=== PATIENT | male | born 1945 | race Two or more races ===

== ENCOUNTER 2017-09-16 20:23 | Emergency (ER) | payer OTHER, BC, MEDICARE ==
[~2017-09-16] VITALS: Ht 180.3 cm; Wt 85.5 kg
[~2017-09-16 20:23] MED LIST: ATEN-169 PO; ATOR40TA PO; CHOL400C8 PO; CYAN-19 PO; FISH1CAP15 PO; ISOS60TA4 PO; LEVO88TA2 PO; LISI30TA4 PO; TICA90TA PO
[2017-09-16 23:13] VITALS: BP 169/98
== END 2017-09-16 23:54 | disposition home or self-care (01) ==
LOC: ER 20:24
DX: R04.0 Epistaxis (principal); I25.10 Atherosclerotic heart disease of native coronary artery without angina pectoris; I10 Essential (primary) hypertension; I25.2 Old myocardial infarction; Z95.0 Presence of cardiac pacemaker; Z95.1 Presence of aortocoronary bypass graft; Z79.899 Other long term (current) drug therapy
CPT/HCPCS: 30901; 99284

== ENCOUNTER 2018-04-08 05:41 | Day surgery (SDC) | payer BC, MEDICARE, OTHER ==
[2018-04-07 16:17] LABS: BASOPHILS % (AUTO) 0.4 % (0-1); EOSINOPHILS # (AUTO) 0.3 X10'3 (0-0.9); EOSINOPHILS % (AUTO) 4.9 % (0-6); HEMATOCRIT 46.5 % (42.0-52.0); HEMOGLOBIN 15.7 g/dl (14.0-17.9); LYMPHOCYTES # (AUTO) 2.5 X10'3 (1.1-4.8); LYMPHOCYTES % (AUTO) 36.3 % (21-51); MEAN CORPUSCULAR HGB CONC 33.7 % (33.0-36.5); MEAN PLATELET VOLUME 10.4 FL (7.4-10.4); MONOCYTES # (AUTO) 0.4 X10'3 (0-0.9); MONOCYTES % (AUTO) 5.4 % (2-12); NEUTROPHILS # (AUTO) 3.6 X10'3 (1.8-7.7); PLATELET COUNT 112 X10'3 (140-440); RED CELL DISTRIBUTION WIDTH 14.9 % (11.5-14.5); WHITE BLOOD COUNT 6.9 X10'3 (4.5-11.0)
[2018-04-07 16:29] LABS: INR 1.1 INR; PARTIAL THROMBOPLASTIN TIME 31 SECONDS (22-32); PROTHROMBIN TIME 10.9 SECONDS (9.0-12.0)
[2018-04-07 16:31] LABS: ALBUMIN 3.8 G/DL (3.4-5.0); ANION GAP 10 (8-16); BLOOD UREA NITROGEN 12 MG/DL (7-18); BUN/CREATININE RATIO 11.2 (5.4-32.0); CALCIUM 8.5 MG/DL (8.5-10.1); CHLORIDE 104 MMOL/L (99-107); CHOL/HDL RATIO 3.2 (0.00-4.99); CHOLESTEROL 160 MG/DL (0-200); CREATININE 1.07 MG/DL (0.60-1.10); GLUCOSE 113 MG/DL (70-104); HDL CHOLESTEROL 50 MG/DL (35-60); LDL CHOLESTEROL 83 MG/DL (50-100); POTASSIUM 3.8 MMOL/L (3.5-5.1); SODIUM 142 MMOL/L (135-145); TOTAL CARBON DIOXIDE 27.8 MMOL/L (24-32); TRIGLYCERIDES 309 MG/DL (20-135); eGFR 68 ML/MIN
[2018-04-08] VITALS (30 sets, daily range): BP systolic 124–179; BP diastolic 62–99
[2018-04-08] MEDS ORDERED: LORazepam 0.5 MG tablet PO PRN (05:55)
[2018-04-08] MEDS ORDERED: diphenhydrAMINE 25mg capsule PO PRN (05:55)
[2018-04-08] MEDS ORDERED: normal saline 1000ml 1,000 ML IV SCH (05:55)
[2018-04-08] MEDS ORDERED: CLOP75TA15 PO (06:23)
[2018-04-08] MEDS ORDERED: ASPI-1264 PO (06:24)
[2018-04-08] MEDS ORDERED: fentaNYL/PF 50MCG/1 ML 2ML syringe ONE (07:25)
[2018-04-08] MEDS ORDERED: nitroGLYCERIN-Tridil 50MG/D5W 250 ML IV ONE (07:25)
[2018-04-08] MEDS ORDERED: midazolam 2 mg/2 ml injection ONE (07:25)
[2018-04-08] MEDS ORDERED: heparin 1,000unit/ml 10ml vial 10 ML ONE (07:25)
[2018-04-08] MEDS ORDERED: LIDOcaine 1% 30ml preserv. free vial ONE ×2 (07:25→13:16)
[2018-04-08] MEDS ORDERED: iohexol 350 MG/ML 50ML vial IV ONE (07:26)
[2018-04-08] MEDS ORDERED: iohexol 350MG/ML 100ml bottle IV ONE ×3 (07:26→09:55)
[2018-04-08] MEDS ORDERED: iohexol 350 MG/1 ML 200ml bottle ONE (09:30)
[2018-04-08] MEDS ORDERED: heparin 1,000 UNITS/NS 500ml 500 ML ONE (09:56)
[2018-04-08] MEDS ORDERED: clopidogrel 300mg tablet ONE (10:05)
[2018-04-08] MEDS ORDERED: proCHLORperazine 10 MG/2 ml inj IV PRN (11:10)
[2018-04-08] MEDS ORDERED: magnesium hydroxide 30ml (MOM) UD suspension PO PRN (11:10)
[2018-04-08] MEDS ORDERED: OXAZEpam 15mg capsule PO PRN (11:10)
[2018-04-08] MEDS ORDERED: acetaminophen 325mg tablet PO PRN (11:10)
[2018-04-08] MEDS ORDERED: HYDROcodone/acetaminophen 10/325mg tab PO PRN ×2 (11:10)
[2018-04-08] MEDS ORDERED: cyclobenzaprine 10mg tablet PO PRN (11:10)
[2018-04-08] MEDS ORDERED: aspirin 81mg tab.chew PO ONE (11:20)
[2018-04-08 15:50] LABS: ISTAT Hct MIX 41 %PCV (42-52); ISTAT O2 SATURATION MIX VENOUS 60 % (60-80); ISTAT SOURCE MIX
[2018-04-08] MEDS ORDERED: docusate sod 100mg capsule PO SCH (20:00)
[2018-04-09] MEDS ORDERED: iohexol 300mg/ml 100ml inj. ONE (01:37)
[2018-04-09] MEDS ORDERED: clopidogrel 75mg tablet PO SCH (08:00)
[2018-04-09] MEDS ORDERED: aspirin 81mg tab.chew PO SCH (08:00)
[2018-04-09 09:05] LABS: ISTAT HGB ART 14.3 g/dl (14.0-18.0); ISTAT Hct ART 42 %PCV (42-52); ISTAT O2 SATURATION ARTERIAL 99 % (95-98); ISTAT SOURCE ART
== END 2018-04-08 20:20 | disposition home or self-care (01) ==
LOC: SSTAY O 05:41
PROVIDERS: ATTEND Internal Medicine Cardiovascular Disease
DX: T82.855A Stenosis of coronary artery stent, initial encounter (principal); Y83.2 Surgical operation with anastomosis, bypass or graft as the cause of abnormal reaction of the patient, or of later complication, without mention of misadventure at the time of the procedure; Y92.89 Other specified places as the place of occurrence of the external cause; I25.708 Atherosclerosis of coronary artery bypass graft(s), unspecified, with other forms of angina pectoris; E78.5 Hyperlipidemia, unspecified; I10 Essential (primary) hypertension; I25.2 Old myocardial infarction; J44.9 Chronic obstructive pulmonary disease, unspecified; E03.9 Hypothyroidism, unspecified; Z95.5 Presence of coronary angioplasty implant and graft; Z95.1 Presence of aortocoronary bypass graft; Z95.810 Presence of automatic (implantable) cardiac defibrillator; Z79.891 Long term (current) use of opiate analgesic; Z79.01 Long term (current) use of anticoagulants; Z79.82 Long term (current) use of aspirin; Z86.74 Personal history of sudden cardiac arrest; Z87.891 Personal history of nicotine dependence; Z87.01 Personal history of pneumonia (recurrent); Z72.89 Other problems related to lifestyle; Z98.890 Other specified postprocedural states; Z79.899 Other long term (current) drug therapy; Z80.9 Family history of malignant neoplasm, unspecified; Z82.49 Family history of ischemic heart disease and other diseases of the circulatory system
CPT/HCPCS: 36415; 80048; 80061; 82803; 85014; 85025; 85347; 85610; 85730; 92920; 93005; 93461; 99152; 99153; A6257; A6258; A6449; C1725; C1760; C1769; C1894; C9600; J1644; J2250; J3490; J7030; Q0163; Q9967; 93460; A4620; J3010

== ENCOUNTER 2019-06-02 08:23 | Day surgery (SDC) | payer BC, MEDICARE ==
[2019-06-01 12:39] LABS: BASOPHILS % (AUTO) 0.4 % (0-1); EOSINOPHILS # (AUTO) 0.2 X10'3 (0-0.9); EOSINOPHILS % (AUTO) 2.9 % (0-6); HEMATOCRIT 44.4 % (42.0-52.0); HEMOGLOBIN 15.2 g/dl (14.0-17.9); LYMPHOCYTES # (AUTO) 1.9 X10'3 (1.1-4.8); LYMPHOCYTES % (AUTO) 32.1 % (21-51); MEAN CORPUSCULAR HEMOGLOBIN 29.1 PG (27.0-31.0); MEAN CORPUSCULAR HGB CONC 34.3 g/dL (33.0-36.5); MEAN CORPUSCULAR VOLUME 84.8 FL (78-98); MEAN PLATELET VOLUME 9.6 FL (7.4-10.4); MONOCYTES # (AUTO) 0.3 X10'3 (0-0.9); MONOCYTES % (AUTO) 5.9 % (2-12); NEUTROPHILS # (AUTO) 3.4 X10'3 (1.8-7.7); NEUTROPHILS % (AUTO) 58.7 % (42-75); PLATELET COUNT 103 X10'3 (140-440); RED BLOOD COUNT 5.24 X10'6 (4.70-6.10); RED CELL DISTRIBUTION WIDTH 14.3 % (11.5-14.5); WHITE BLOOD COUNT 5.8 X10'3 (4.5-11.0)
[2019-06-01 12:44] LABS: ALBUMIN 3.7 G/DL (3.4-5.0); ANION GAP 8 (8-16); BLOOD UREA NITROGEN 12 MG/DL (7-18); BUN/CREATININE RATIO 13.6 (5.4-32.0); CALCIUM 8.4 MG/DL (8.5-10.1); CHLORIDE 107 MMOL/L (99-107); CREATININE 0.88 MG/DL (0.60-1.10); GLUCOSE 98 MG/DL (70-104); POTASSIUM 3.7 MMOL/L (3.5-5.1); SODIUM 142 MMOL/L (135-145); TOTAL CARBON DIOXIDE 27.3 MMOL/L (24-32); eGFR 85 ML/MIN
[2019-06-01 12:47] LABS: PARTIAL THROMBOPLASTIN TIME 28 SECONDS (22-32)
[~2019-06-02] VITALS: Ht 180.3 cm; Wt 92.8 kg
[2019-06-02] VITALS (10 sets, daily range): BP systolic 125–146; BP diastolic 78–108
[~2019-06-02 08:23] MED LIST changes: +ASPI-1264 PO; +CLOP75TA15 PO; -CYAN-19 PO; +CYAN100019 PO; -TICA90TA PO
[2019-06-02] MEDS ORDERED: normal saline 1,000 ML IV SCH (08:55)
[2019-06-02] MEDS ORDERED: diphenhydrAMINE 25mg capsule PO PRN (08:55)
[2019-06-02] MEDS ORDERED: LORazepam 0.5 MG tablet PO PRN (08:55)
[2019-06-02] MEDS ORDERED: LIDOcaine 1% (10mg/ml)w/preservative injection 20ml MDV ONE (11:20)
[2019-06-02] MEDS ORDERED: iohexol 350MG/ML 100ml bottle IV ONE (11:20)
[2019-06-02] MEDS ORDERED: iohexol 350 MG/ML 50ML vial IV ONE (11:20)
[2019-06-02] MEDS ORDERED: nitroGLYCERIN-Tridil 50MG/D5W 250 ML IV ONE (11:20)
[2019-06-02] MEDS ORDERED: heparin 1,000unit/ml 10ml vial 10 ML ONE (11:20)
[2019-06-02] MEDS ORDERED: midazolam 2 mg/2 ml injection ONE (11:41)
[2019-06-02] MEDS ORDERED: fentaNYL/PF 50MCG/1 ML 2ML syringe ONE (11:41)
[2019-06-02] MEDS ORDERED: normal saline 1000ml 1,000 ML IV SCH (12:40)
== END 2019-06-02 18:00 | disposition home or self-care (01) ==
LOC: SSTAY O 08:23
PROVIDERS: ATTEND Internal Medicine Cardiovascular Disease
DX: I25.10 Atherosclerotic heart disease of native coronary artery without angina pectoris (principal); R94.39 Abnormal result of other cardiovascular function study; I10 Essential (primary) hypertension; Z95.1 Presence of aortocoronary bypass graft; Z86.74 Personal history of sudden cardiac arrest; I25.2 Old myocardial infarction; Z95.810 Presence of automatic (implantable) cardiac defibrillator; R06.02 Shortness of breath; R53.83 Other fatigue; J44.9 Chronic obstructive pulmonary disease, unspecified; Z87.891 Personal history of nicotine dependence
CPT/HCPCS: 36415; 80048; 85025; 85610; 85730; 93005; 93459; C1769; J1644; J2001; J2250; J3010; J7030; Q0163; Q9967; 99152; 99153; A4620; A6258; C1760; J3490

== ENCOUNTER 2022-03-13 14:03 | Emergency (ER) | payer OTHER, BC, MEDICARE ==
[~2022-03-13] VITALS: Ht 180.3 cm; Wt 71.0 kg
[~2022-03-13 14:03] MED LIST changes: -CHOL400C8 PO; -CYAN100019 PO; -ISOS60TA4 PO; +ISOS60TA71 PO
[2022-03-13 14:53] LABS: BASOPHILS % (AUTO) 0.3 % (0-1); EOSINOPHILS % (AUTO) 0.3 % (0-6); HEMATOCRIT 42.2 % (42.0-52.0); HEMOGLOBIN 14.3 g/dl (14.0-17.9); LYMPHOCYTES # (AUTO) 0.7 X10'3 (1.1-4.8); LYMPHOCYTES % (AUTO) 7.4 % (21-51); MEAN CORPUSCULAR HEMOGLOBIN 28.6 PG (27.0-31.0); MEAN CORPUSCULAR VOLUME 84.3 FL (78-98); MEAN PLATELET VOLUME 9.8 FL (7.4-10.4); MONOCYTES # (AUTO) 0.7 X10'3 (0-0.9); MONOCYTES % (AUTO) 7.6 % (2-12); NEUTROPHILS # (AUTO) 7.6 X10'3 (1.8-7.7); NEUTROPHILS % (AUTO) 84.4 % (42-75); PLATELET COUNT 98 X10'3 (140-440); RED CELL DISTRIBUTION WIDTH 14.4 % (11.5-14.5)
[2022-03-13 15:07] LABS: ALANINE AMINOTRANSFERASE 25 U/L (12-78); ALBUMIN 3.2 G/DL (3.4-5.0); ALBUMIN/GLOBULIN RATIO 0.8 (1.1-1.5); ALKALINE PHOSPHATASE 96 IU/L (46-116); ANION GAP 9 (8-16); ASPARTATE AMINO TRANSFERASE 22 U/L (10-37); BILIRUBIN,TOTAL 0.7 MG/DL (0.1-1.0); BLOOD UREA NITROGEN 20 MG/DL (7-18); BUN/CREATININE RATIO 23.5 (5.4-32.0); CALCIUM 8.8 MG/DL (8.5-10.1); CHLORIDE 105 MMOL/L (99-107); CREATININE 0.85 MG/DL (0.60-1.10); GLUCOSE 101 MG/DL (70-104); LIPASE 70 U/L (73-393); POTASSIUM 3.9 MMOL/L (3.5-5.1); SODIUM 140 MMOL/L (135-145); TOTAL CARBON DIOXIDE 26.4 MMOL/L (24-32); TOTAL PROTEIN 7.3 G/DL (6.4-8.2); eGFR 88 ML/MIN
[2022-03-13 18:14] LABS: CLARITY,URINE CLEAR (Clear); COLOR,URINE YELLOW (Yellow); GLUCOSE, URINE NEGATIVE (Neg); KETONES,URINE 15 mg/dl (Neg); LEUKOCYTE ESTERASE ,URINE MODERATE (Neg); NITRITES, URINE NEGATIVE (Neg); OCCULT BLOOD,URINE LARGE (Neg); PROTEIN,URINE 100 mg/dl (Neg)
[2022-03-13] MEDS ORDERED: normal saline 1000ML IV soln IVB ONE (18:35)
[2022-03-13] MEDS ORDERED: HYDROcodone/acetaminophen 5mg/325mg tablet PO ONE ×2 (18:40→20:10)
[2022-03-13 18:44] LABS: UA COLLECTION TYPE CLN CATCH MIDSTREAM
[2022-03-13 18:50] LABS: WBC,URINE TNTC /HPF (0-4)
[2022-03-13 18:51] LABS: BACTERIA,URINE 4+ /HPF (Neg); MUCUS STRANDS NONE SEEN /LPF (Neg); SQUAMOUS EPITHELIAL CELL,UR NONE SEEN /LPF (FEW)
[2022-03-13] MEDS ORDERED: iohexol 300mg/ml 100ml inj. ONE (19:04)
[2022-03-13] MEDS ORDERED: LIDOcaine 5% patch TP STA (20:06)
[2022-03-13] MEDS ORDERED: CEPH250T PO (20:09)
[2022-03-13] MEDS ORDERED: LIDO700A32 TOP (20:09)
[2022-03-13] MEDS ORDERED: HYDR-3965 PO (20:09)
[2022-03-13] MEDS ORDERED: cephalexin 250mg capsule PO ONE (20:10)
[2022-03-13 21:33] VITALS: BP 132/70
== END 2022-03-13 22:48 | disposition home or self-care (01) ==
LOC: ER 14:05
DX: S20.212A Contusion of left front wall of thorax, initial encounter (principal); N39.0 Urinary tract infection, site not specified; R07.81 Pleurodynia; R31.9 Hematuria, unspecified; R30.0 Dysuria; I25.10 Atherosclerotic heart disease of native coronary artery without angina pectoris; I10 Essential (primary) hypertension; I25.2 Old myocardial infarction; Z95.0 Presence of cardiac pacemaker; Z98.890 Other specified postprocedural states; Z79.82 Long term (current) use of aspirin; Z79.2 Long term (current) use of antibiotics; Z79.899 Other long term (current) drug therapy; W19.XXXA Unspecified fall, initial encounter; Y93.89 Activity, other specified; Y92.89 Other specified places as the place of occurrence of the external cause; Y99.8 Other external cause status
CPT/HCPCS: 74176; 74177; 80053; 81001; 83690; 85025; 87077; 87088; 87186; 99285; J3490; J7030; Q9967

== ENCOUNTER 2024-01-14 08:30 | Day surgery (SDC) | payer OTHER, MEDICARE ==
[2024-01-13 14:16] LABS: BASOPHILS % (AUTO) 0.4 % (0-1); EOSINOPHILS # (AUTO) 0.2 X10'3 (0-0.9); EOSINOPHILS % (AUTO) 2.7 % (0-6); HEMATOCRIT 46.7 % (42.0-52.0); HEMOGLOBIN 15.6 g/dl (14.0-17.9); LYMPHOCYTES # (AUTO) 1.9 X10'3 (1.1-4.8); LYMPHOCYTES % (AUTO) 22.9 % (21-51); MEAN CORPUSCULAR HEMOGLOBIN 27.8 PG (27.0-31.0); MEAN CORPUSCULAR HGB CONC 33.4 g/dL (33.0-36.5); MEAN CORPUSCULAR VOLUME 83.2 FL (78-98); MEAN PLATELET VOLUME 9.5 FL (7.4-10.4); MONOCYTES # (AUTO) 0.8 X10'3 (0-0.9); NEUTROPHILS # (AUTO) 5.4 X10'3 (1.8-7.7); PLATELET COUNT 144 X10'3 (140-440); RED BLOOD COUNT 5.61 X10'6 (4.70-6.10); RED CELL DISTRIBUTION WIDTH 15.7 % (11.5-14.5); WHITE BLOOD COUNT 8.5 X10'3 (4.5-11.0)
[2024-01-13 14:27] LABS: APTT 26 SECONDS (22-32); PROTHROMBIN TIME 11.2 SECONDS (9.0-12.0)
[2024-01-13 14:29] LABS: ALBUMIN 3.8 G/DL (3.4-5.0); ANION GAP 11 (8-16); BLOOD UREA NITROGEN 13 MG/DL (7-18); BUN/CREATININE RATIO 9.7 (10.0-20.0); CALCIUM 8.6 MG/DL (8.5-10.1); CHLORIDE 104 MMOL/L (99-107); CREATININE 1.34 MG/DL (0.60-1.10); GLUCOSE 86 MG/DL (70-104); POTASSIUM 3.5 MMOL/L (3.5-5.1); SODIUM 139 MMOL/L (135-145); TOTAL CARBON DIOXIDE 23.6 MMOL/L (24-32); eGFR 52 ML/MIN
[~2024-01-14] VITALS: Ht 180.3 cm; Wt 87.5 kg
[2024-01-14] VITALS (13 sets, daily range): BP systolic 107–159; BP diastolic 66–96; PULSE 60–65; RESP 11–16; TEMP 98.1; O2SAT 95–97
[~2024-01-14 08:30] MED LIST changes: +APIX5TAB3 PO; -ASPI-1264 PO; +FURO-150 PO
[2024-01-14] MEDS ORDERED: fish oil (09:00)
[2024-01-14] MEDS ORDERED: AMI200T PO (09:00)
[2024-01-14] MEDS ORDERED: FURO20TA4 PO (09:00)
[2024-01-14] MEDS ORDERED: MECO10005 PO (09:00)
[2024-01-14] MEDS ORDERED: ATEN100T PO (09:00)
[2024-01-14] MEDS ORDERED: CLOP-32 PO (09:01)
[2024-01-14] MEDS ORDERED: APIX5TAB3 PO (09:26)
[2024-01-14] MEDS: normal saline 1,000 ML IV SCH (09:46)
[2024-01-14] MEDS: diphenhydrAMINE 25mg capsule PO PRN (09:46)
[2024-01-14] MEDS: LORazepam 0.5 MG tablet PO PRN (09:46)
[2024-01-14] MEDS ORDERED: verapamil 2.5 mg/ml inj IV ONE (12:09)
[2024-01-14] MEDS ORDERED: fentaNYL/PF 50MCG/1 ML 2ML syringe ONE (12:09)
[2024-01-14] MEDS ORDERED: LIDOcaine 1% (10mg/ml) 2ml vial ONE (12:09)
[2024-01-14] MEDS ORDERED: iohexol 350MG/ML 100ml bottle IV ONE (12:10)
[2024-01-14] MEDS ORDERED: midazolam 1 mg/ML 2ml injection ONE (12:10)
[2024-01-14] MEDS ORDERED: iohexol 350 MG/ML 50ML vial IV ONE ×2 (12:10→12:54)
[2024-01-14] MEDS ORDERED: heparin 1,000unit/ml 10ml vial 10 ML ONE (12:10)
[2024-01-14] MEDS ORDERED: LIDOcaine 1% 30ml preserv. free vial ONE (12:11)
[2024-01-14] MEDS ORDERED: nitroGLYCERIN 500mcg/5mL D5W 5 ML IV ONE (12:12)
[2024-01-14] MEDS ORDERED: HYDROcodone/acetaminophen 10/325mg tab PO PRN (13:45)
[2024-01-14] MEDS ORDERED: normal saline 1000ml 1,000 ML IV SCH (13:45)
[2024-01-14] MEDS ORDERED: HYDROcodone/acetaminophen 5mg/325mg tablet PO PRN (13:45)
== END 2024-01-14 19:25 | disposition home or self-care (01) ==
LOC: SSTAY O 08:30
PROVIDERS: ATTEND Internal Medicine Cardiovascular Disease
DX: I25.810 Atherosclerosis of coronary artery bypass graft(s) without angina pectoris (principal); I11.0 Hypertensive heart disease with heart failure; I50.32 Chronic diastolic (congestive) heart failure; E78.5 Hyperlipidemia, unspecified; J44.9 Chronic obstructive pulmonary disease, unspecified; I48.0 Paroxysmal atrial fibrillation; I48.92 Unspecified atrial flutter; I25.2 Old myocardial infarction; Z79.01 Long term (current) use of anticoagulants; Z79.82 Long term (current) use of aspirin; Z79.899 Other long term (current) drug therapy; Z95.1 Presence of aortocoronary bypass graft; Z95.5 Presence of coronary angioplasty implant and graft; Z95.810 Presence of automatic (implantable) cardiac defibrillator; Z98.890 Other specified postprocedural states
CPT/HCPCS: 36415; 76937; 80048; 85025; 85610; 85730; 93005; 93459; 99152; J1644; J2250; J3010; J3490; J7030; Q0163; Q9967; 99153; A6258; C1725; C1760

== ENCOUNTER 2024-06-30 06:24 | Day surgery (SDC) | payer OTHER, MEDICARE ==
[2024-06-29 15:09] LABS: BASOPHILS % (AUTO) 0.7 % (0-1); EOSINOPHILS # (AUTO) 0.2 X10'3 (0-0.9); EOSINOPHILS % (AUTO) 2.5 % (0-6); HEMATOCRIT 42.6 % (42.0-52.0); HEMOGLOBIN 13.8 g/dl (14.0-17.9); LYMPHOCYTES # (AUTO) 1.3 X10'3 (1.1-4.8); LYMPHOCYTES % (AUTO) 21.4 % (21-51); MEAN CORPUSCULAR HEMOGLOBIN 27.7 PG (27.0-31.0); MEAN CORPUSCULAR HGB CONC 32.5 g/dL (33.0-36.5); MEAN CORPUSCULAR VOLUME 85.4 FL (78-98); MEAN PLATELET VOLUME 9.6 FL (7.4-10.4); MONOCYTES # (AUTO) 0.5 X10'3 (0-0.9); NEUTROPHILS # (AUTO) 4.2 X10'3 (1.8-7.7); NEUTROPHILS % (AUTO) 67.4 % (42-75); PLATELET COUNT 125 X10'3 (140-440); RED BLOOD COUNT 4.98 X10'6 (4.70-6.10); RED CELL DISTRIBUTION WIDTH 16.9 % (11.5-14.5); WHITE BLOOD COUNT 6.2 X10'3 (4.5-11.0)
[2024-06-29 15:23] LABS: ALBUMIN 3.4 G/DL (3.4-5.0); CALCIUM 8.4 MG/DL (8.5-10.1); TOTAL CARBON DIOXIDE 26.6 MMOL/L (24-32)
[2024-06-29 15:24] LABS: INR 1.2 INR; PROTHROMBIN TIME 12.1 SECONDS (9.0-12.0)
[2024-06-29 15:34] LABS: ANION GAP 9 (8-16); BLOOD UREA NITROGEN 13 MG/DL (7-18); CHLORIDE 108 MMOL/L (99-107); GLUCOSE 101 MG/DL (70-104); POTASSIUM 4.1 MMOL/L (3.5-5.1); SODIUM 144 MMOL/L (135-145); eGFR 53 ML/MIN
[~2024-06-30] VITALS: Ht 180.3 cm; Wt 89.8 kg
[2024-06-30] VITALS (11 sets, daily range): BP systolic 136–161; BP diastolic 89–100; PULSE 60–93; RESP 14–20; TEMP 97.8; O2SAT 92–99
[~2024-06-30 06:24] MED LIST changes: +AMI200T PO; +ATEN100T PO; -ATOR40TA PO; +CLOP-32 PO; -CLOP75TA15 PO; -FURO-150 PO; +FURO20TA4 PO; +MECO10005 PO; +fish oil
[2024-06-30] MEDS ORDERED: diphenhydrAMINE 25mg capsule PO ONE (06:40)
[2024-06-30] MEDS ORDERED: atropine 0.1mg/ml 10ml syringe IV ONE (06:40)
[2024-06-30] MEDS ORDERED: LORazepam 0.5 MG tablet PO ONE (06:40)
[2024-06-30] MEDS ORDERED: ATOR-2 PO (06:53)
[2024-06-30] MEDS ORDERED: LEVO125T PO (06:53)
[2024-06-30] MEDS ORDERED: CHOL10CA2 PO (06:53)
[2024-06-30] MEDS ORDERED: MAGN400C PO (06:53)
[2024-06-30] MEDS ORDERED: AMI200T PO (07:27)
[2024-06-30] MEDS: MIDAZolam 1mg/ml 10ml vial IV ONE (08:49)
[2024-06-30] MEDS: morphine 10mg/ml inj. IV ONE (08:49)
[2024-06-30] MEDS: amiodarone 150mg/dext, iso-os 100 ML IV ONE (08:49)
[2024-06-30] MEDS: normal saline 1000ml 1,000 ML IV SCH (08:49)
== END 2024-06-30 09:45 | disposition home or self-care (01) ==
LOC: SSTAY O 06:24
PROVIDERS: ATTEND Internal Medicine Cardiovascular Disease
DX: I48.19 Other persistent atrial fibrillation (principal); I25.10 Atherosclerotic heart disease of native coronary artery without angina pectoris; I42.9 Cardiomyopathy, unspecified; E78.5 Hyperlipidemia, unspecified; I48.0 Paroxysmal atrial fibrillation; I35.1 Nonrheumatic aortic (valve) insufficiency; I11.0 Hypertensive heart disease with heart failure; I50.32 Chronic diastolic (congestive) heart failure; Z79.899 Other long term (current) drug therapy; Z98.890 Other specified postprocedural states; Z95.5 Presence of coronary angioplasty implant and graft; I44.7 Left bundle-branch block, unspecified
CPT/HCPCS: 36415; 80048; 85025; 85610; 92960; 93005; J0282; J2250; J2274; J7030

== ENCOUNTER 2024-09-01 06:30 | Day surgery (SDC) | payer OTHER, MEDICARE ==
[2024-08-31 15:03] LABS: BASOPHILS % (AUTO) 0.5 % (0-1); EOSINOPHILS # (AUTO) 0.2 X10'3 (0-0.9); EOSINOPHILS % (AUTO) 2.3 % (0-6); HEMATOCRIT 51.5 % (42.0-52.0); HEMOGLOBIN 16.9 g/dl (14.0-17.9); LYMPHOCYTES # (AUTO) 1.8 X10'3 (1.1-4.8); MEAN CORPUSCULAR HEMOGLOBIN 28.1 PG (27.0-31.0); MEAN CORPUSCULAR HGB CONC 32.7 g/dL (33.0-36.5); MEAN CORPUSCULAR VOLUME 85.7 FL (78-98); MEAN PLATELET VOLUME 9.9 FL (7.4-10.4); MONOCYTES # (AUTO) 0.7 X10'3 (0-0.9); MONOCYTES % (AUTO) 8.3 % (2-12); NEUTROPHILS # (AUTO) 5.5 X10'3 (1.8-7.7); NEUTROPHILS % (AUTO) 66.9 % (42-75); PLATELET COUNT 122 X10'3 (140-440); RED BLOOD COUNT 6.01 X10'6 (4.70-6.10); RED CELL DISTRIBUTION WIDTH 16.1 % (11.5-14.5); WHITE BLOOD COUNT 8.2 X10'3 (4.5-11.0)
[2024-08-31 15:11] LABS: ALBUMIN 3.7 G/DL (3.4-5.0); ANION GAP 6 (8-16); BLOOD UREA NITROGEN 20 MG/DL (7-18); BUN/CREATININE RATIO 15.7 (10.0-20.0); CALCIUM 8.5 MG/DL (8.5-10.1); CHLORIDE 105 MMOL/L (99-107); CREATININE 1.27 MG/DL (0.60-1.10); GLUCOSE 97 MG/DL (70-104); POTASSIUM 3.7 MMOL/L (3.5-5.1); SODIUM 141 MMOL/L (135-145); TOTAL CARBON DIOXIDE 29.9 MMOL/L (24-32); eGFR 55 ML/MIN
[2024-08-31 15:13] LABS: APTT 26 SECONDS (22-32); INR 1.1 INR; PROTHROMBIN TIME 11.1 SECONDS (9.0-12.0)
[2024-09-01] VITALS (11 sets, daily range): BP systolic 104–147; BP diastolic 62–104; PULSE 60–71; RESP 13–19; O2SAT 93–97
[~2024-09-01] VITALS: Ht 180.3 cm; Wt 89.2 kg
[~2024-09-01 06:30] MED LIST changes: +ATOR-2 PO; +CHOL10CA2 PO; +LEVO125T PO; -LEVO88TA2 PO; +MAGN400C PO
[2024-09-01] MEDS ORDERED: ceFAZolin 2gm in dextrose, iso 50 ML IV ONE (06:50)
[2024-09-01] MEDS ORDERED: LIDOcaine 1% W/epiNEPHrine 1:100,000 20ml vial ONE (08:58)
[2024-09-01] MEDS ORDERED: ceFAZolin 1000mg inj ONE (08:58)
[2024-09-01] MEDS ORDERED: midazolam 1 mg/ML 2ml injection ONE (08:58)
[2024-09-01] MEDS ORDERED: fentaNYL/PF 50MCG/1 ML 2ML syringe ONE (08:58)
[2024-09-01] MEDS ORDERED: HYDROcodone/acetaminophen 10/325mg tab PO PRN (11:45)
[2024-09-01] MEDS ORDERED: HYDROcodone/acetaminophen 5mg/325mg tablet PO PRN (11:45)
[2024-09-01] MEDS: vancomycin/NS 1 GM ADD-VANTAGE 250 ML X 1 DOSE IV ONE (12:14)
[2024-09-01] MEDS ORDERED: CEPH-585 PO (13:51)
== END 2024-09-01 16:25 | disposition home or self-care (01) ==
LOC: SSTAY O 06:30
PROVIDERS: ATTEND Internal Medicine Cardiovascular Disease
DX: Z45.02 Encounter for adjustment and management of automatic implantable cardiac defibrillator (principal); I25.10 Atherosclerotic heart disease of native coronary artery without angina pectoris; I11.0 Hypertensive heart disease with heart failure; I50.32 Chronic diastolic (congestive) heart failure; I25.2 Old myocardial infarction; J44.9 Chronic obstructive pulmonary disease, unspecified; E78.5 Hyperlipidemia, unspecified; I48.0 Paroxysmal atrial fibrillation; I35.1 Nonrheumatic aortic (valve) insufficiency; Z79.01 Long term (current) use of anticoagulants; Z79.899 Other long term (current) drug therapy; Z95.1 Presence of aortocoronary bypass graft; Z98.890 Other specified postprocedural states
CPT/HCPCS: 33263; 36415; 80048; 85025; 85610; 85730; 93005; 99152; 99153; C1721; J0690; J2250; J3010; J3370; J3490; J7030; A6449

== ENCOUNTER 2025-06-01 07:38 | Day surgery (SDC) | payer OTHER, MEDICARE ==
[2025-05-31 15:18] LABS: MEAN PLATELET VOLUME 9.8 FL (7.4-10.4); RED CELL DISTRIBUTION WIDTH 14.2 % (11.5-14.5)
[2025-05-31 15:25] LABS: CREATININE 1.13 MG/DL (0.60-1.10); TOTAL CARBON DIOXIDE 25.8 MMOL/L (24-32); eGFR 63 ML/MIN
[2025-05-31 15:28] LABS: APTT 26 SECONDS (22-32); INR 1.1 INR
[2025-06-01] VITALS (12 sets, daily range): BP systolic 117–180; BP diastolic 65–98; PULSE 59–79; RESP 16; TEMP 97.3; O2SAT 95–97
[~2025-06-01] VITALS: Ht 180.3 cm; Wt 90.2 kg
[~2025-06-01 07:38] MED LIST changes: -AMI200T PO; +AMIO200T76 PO; -ATEN100T PO; -MECO10005 PO; -fish oil
--- NOTE | 2025-06-01 08:33 | ELECTROCARDIOGRAPH REPORT ---
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 Jersey Tan Measurements Intervals [place] Rate: 80 P: 0 CT: 277 QRS: 16 QRSD: 107 T: 191 QT: 429 QTc: 495 Interpretive Statements Atrial-paced complexes Prolonged CT interval LVH with secondary repolarization abnormality Borderline prolonged QT interval Electronically Signed On 06-01-2025 16:31:[address] Jersey Tan Please click the below link to view image of tracing.
[2025-06-01] MEDS ORDERED: CYAN-34 PO (09:57)
[2025-06-01] MEDS: sodium bicarbonate 1meq/ml syr 150 ML in dextrose 5%-water 1,000 ML IV ONE (11:29)
[2025-06-01] MEDS ORDERED: heparin 1,000unit/ml 10ml vial 10 ML ONE (11:58)
[2025-06-01] MEDS ORDERED: fentaNYL/PF 50MCG/1 ML 2ML syringe ONE (11:58)
[2025-06-01] MEDS ORDERED: midazolam 1 mg/ML 2ml injection ONE (11:58)
[2025-06-01] MEDS ORDERED: iohexol 350 MG/ML 50ML vial IV ONE ×2 (11:58→13:09)
[2025-06-01] MEDS ORDERED: LIDOcaine 1% 30ml preserv. free vial ONE (11:58)
[2025-06-01] MEDS ORDERED: hydrALAZINE 20mg/ml inj. ONE (12:41)
[2025-06-01] MEDS ORDERED: nitroGLYCERIN 500mcg/5mL D5W 5 ML IV ONE (12:46)
--- NOTE | 2025-06-01 20:01 | CARDIOLOGY REPORT ---
DATE OF SERVICE: 06/01/2025 DICTATING PHYSICIAN: KATELYN Butcher MD CARDIAC CATHETERIZATION REPORT GENDER: Male AGE: 80 years HEIGHT: 180 cm WEIGHT: 90.2 kg BODY SURFACE AREA: 12.1 m2 PRIMARY PHYSICIAN: [facility]. RN REFERRAL: Dr. Butcher. INDICATION: The patient is a 80-year-old male with a history of hypertension, hyperlipidemia, CAD, CABG and AICD. The patient has a history of CAD dated back to 1996 when he had inferior wall myocardial infarction with ventricular VT arrest, requiring AICD implantation. At that time, he received FRANCIS to LAD, SVG to OM, SVG to ramus and SVG to RCA. The patient had 100% occlusion of the SVG to RCA back in 2002. At that time, he underwent stenting of the same with 3/18 Zeta stent distally and 4/18 Zeta in the proximal portion. At that time, he also had stenting of the SVG to OM and SVG to ramus, which have since been occluded. He also had stenting of SVG to ramus back in 2003. Distal to the SVG to RCA was proximal to the bifurcation. The patient has had stenting of distal 1/3 of the SVG to RCA with 4/12 Vision stent. The patient also had a PTCA stenting of 70% to 80% narrowing of the chilkoot distal circumflex artery stent and also had 80% to 90% stenting of mid circumflex with 3/16 Taxus stent. In 10/2010, the patient had a distal RCA in-stent restenosis extending from SVG to PDA. Posterolateral branch was on angioplasty. In 10/2015, the patient had again in-stent narrowing of the distal stent in the SVG to RCA and was successfully stented with 3/15 Alpine stent. PDA was successfully angioplastied. The patient had in-stent narrowing of the mid circumflex, which was post dilated with noncompliant balloon on 09/19/2015. On 01/2024, only 2/4 grafts patent, FRANCIS to LAD and SVG to RCA. Now the patient has been having excessive fatigue and underwent myocardial perfusion scan, found to have mild anterior and inferior reversible defect. After discussing risks, benefits, alternative options, the patient has undergone coronary angiography. Risks, benefits, and alternative options were discussed and informed consent was obtained. PROCEDURE: The patient underwent left heart catheterization by right femoral approach. Ultrasound guidance, 6-Slovenian femoral arterial sheath. Post procedure access site hemostasis secured . The patient tolerated the procedure well. COMPLICATIONS: None. PROCEDURES DONE: 1. Ultrasound-guided right femoral artery visualization and access. 2. Right femoral arteriogram. 3. Upper closure of the right femoral arteriotomy. 4. Left heart catheterization. 5. Coronary angiography. 6. FRANCIS injection. 7. Graft cineangiography. 8. Conscious sedation time of 45 minutes. FINDINGS: HEMODYNAMICS: Aortic systolic 164, diastolic 82, mean 115 mmHg. LVDP of 12 mmHg. No significant gradient seen across the aortic valve. LVG: Overall left ventricular systolic function is about 70%. CORONARY CINEANGIOGRAPHY: Left main coronary artery is a large caliber vessel arising at the left aortic sinus with mild luminal irregularity. Large caliber, engaged with JL4 with right radial approach. The LAD is a medium caliber bifurcate at the left main coronary artery wrapping around the apex. Proximal LAD has about 30% narrowing. Mid LAD has 20% narrowing. Diagonal is 2.25 mm caliber with mild luminal irregularities. Circumflex artery is of medium caliber, arising at the bifurcation of left main coronary artery, courses through the left AV groove. Stents in the distal circumflex and mid circumflex are patent and patient has mild in-stent narrowing. Proximal circumflex artery has 50% narrowing. OM1, 2.75 mm caliber, mild luminal irregularities. OM2 is 2 mm caliber with minimal luminal irregularities. OM3 is 2.25 caliber with mild luminal irregularities. Right coronary artery is 100% occluded. Proximal portion with BENSON 3 flow beyond. The 2/4 grafts patent. The SVG to RCA is patent. The patient does have 40% narrowing in the proximal most of the ostium and distal 1/3 of the RCA. RCA just before shows about 60% narrowing. FRANCIS to LAD is patent, it is small; however, it is causing competitive flow from FRANCIS to chilkoot LAD. IMPRESSION: A 80-year-old with LV ejection fraction of 70%. LVEDP of 12 mmHg. No significant gradient of the aortic valve. Left main normal. LAD proximal 40%, mid 20% narrowing. Circumflex proximal 50% narrowing. Stent in the mid and distal circumflex are widely patent. RCA 100% occluded. The 2/4 grafts patent in FRANCIS to LAD, SVG to RCA. RECOMMENDATIONS: Recommended continued aggressive coronary risk factor modification, namely low fat, low cholesterol diet, maintaining ideal body weight, keeping LDL 65 mg/dL, regular exercise program. KATELYN Butcher MD TID: [id number] RECEIPT: [id number] /[id number]
== END 2025-06-01 18:30 | disposition home or self-care (01) ==
LOC: SSTAY O 07:38
PROVIDERS: ATTEND Internal Medicine Cardiovascular Disease
DX: T82.855A Stenosis of coronary artery stent, initial encounter (principal); I25.10 Atherosclerotic heart disease of native coronary artery without angina pectoris; R94.39 Abnormal result of other cardiovascular function study; R94.31 Abnormal electrocardiogram [ECG] [EKG]; I11.0 Hypertensive heart disease with heart failure; I50.32 Chronic diastolic (congestive) heart failure; E78.5 Hyperlipidemia, unspecified; J44.9 Chronic obstructive pulmonary disease, unspecified; I48.0 Paroxysmal atrial fibrillation; Z79.01 Long term (current) use of anticoagulants; Z79.890 Hormone replacement therapy; Z79.899 Other long term (current) drug therapy; Z95.5 Presence of coronary angioplasty implant and graft; Z95.1 Presence of aortocoronary bypass graft; Z98.890 Other specified postprocedural states; Y83.8 Other surgical procedures as the cause of abnormal reaction of the patient, or of later complication, without mention of misadventure at the time of the procedure; Y92.89 Other specified places as the place of occurrence of the external cause
CPT/HCPCS: 80048; 85025; 85610; 85730; 93005; 93459; 99152; 99153; J0360; J1644; J2003; J2250; J3010; J3490; J7030; J7070; Q0163; Q9967; A6258; C1725